=== PATIENT | male | born 1945 | race Caucasian/White ===

== ENCOUNTER 2016-11-19 07:23 | Day surgery (SDC) | payer OTHER ==
[2016-11-18 13:45] VITALS: BMI 24.2
[2016-11-19] MEDS ORDERED: ACETAMINOPHEN 325 MG TABLET (FP) ONE (08:11)
[2016-11-19 08:22] VITALS: TEMP 98
[2016-11-19] MEDS ORDERED: LIDOCAINE HCL/PF 1% SDV 5ML VIAL ONE (08:46)
[2016-11-19] MEDS ORDERED: PROPOFOL 20 ML ONE ×3 (08:46)
[2016-11-19 12:02] VITALS: BP 120/69; PULSE 63
--- NOTE | 2016-11-20 12:53 | PATH ---
Surgical Pathology Report Patient Name: NARINDER SOLIS [facility]. Rec. #: [id number] /Age/Gender: 1945 (Age: 71) / M Account: [id number] Location: U-ENDOSCOPY Taken: 11/19/2016 Received: 11/19/2016 Reported: 11/20/2016 Physicians: Paddy Negrete D.O. Specimen(s) Received A: BX DESCENDING COLON POLYP B: BX CECAL POLYP C: BX HEPATIC FLEXURE POLYP Clinical History Colon screening Diverticulosis, hemorrhoids, colon polyps (descending colon, cecum, hepatic flexure) Final Diagnosis A. COLON, DESCENDING, POLYP BIOPSY: POLYPOID FRAGMENT OF COLONIC MUCOSA WITH PROMINENT REACTIVE LYMPHOID AGGREGATE AND FOCAL SURFACE HYPERPLASTIC CHANGE. B. COLON, CECUM, POLYP, BIOPSY: POLYPOID FRAGMENT OF COLONIC MUCOSA WITH PROMINENT REACTIVE LYMPHOID AGGREGATE. C. COLON, HEPATIC FLEXURE, POLYP BIOPSY: FRAGMENTS OF TUBULAR ADENOMA. Electronically Signed David Bell M.D. Gross Description A. Received in formalin, labeled "biopsy descending colon polyp" is a arvizu, irregular portion of soft tissue measuring 0.3 cm in greatest dimension. The specimen is submitted in toto in one cassette. B. Received in formalin, labeled "biopsy cecal polyp" is a arvizu, irregular portion of soft tissue measuring 0.3 cm in greatest dimension. The specimen is submitted in toto in one cassette. C. Received in formalin, labeled "biopsy hepatic flexure polyp" are 2 arvizu, irregular portions of soft tissue averaging 0.2 cm in greatest dimension. The specimens are submitted in toto in one cassette. 11/19/201611/19/2016
== END 2016-11-19 10:30 | disposition home or self-care (01) ==
LOC: JASU-ENDO 07:23
PROVIDERS: ATTEND Internal Medicine Gastroenterology
PROC: 0DBE8ZX Excision of Large Intestine, Via Natural or Artificial Opening Endoscopic, Diagnostic (ICD-10-PCS; 2016-11-19)
PROC: 0DBM8ZX Excision of Descending Colon, Via Natural or Artificial Opening Endoscopic, Diagnostic (ICD-10-PCS; 2016-11-19)
PROC: 0DBH8ZX Excision of Cecum, Via Natural or Artificial Opening Endoscopic, Diagnostic (ICD-10-PCS; principal; 2016-11-19 09:00)
DX: Z12.11 Encounter for screening for malignant neoplasm of colon (principal); K57.30 Diverticulosis of large intestine without perforation or abscess without bleeding; K64.8 Other hemorrhoids; D12.0 Benign neoplasm of cecum; D12.4 Benign neoplasm of descending colon; K63.5 Polyp of colon
CPT/HCPCS: 88305-TC

== ENCOUNTER 2017-03-29 13:06 | Observation (INO) | payer OTHER ==
[2017-03-29] MEDS ORDERED: SODIUM CHLORIDE 1,000 ML IV STA (13:42)
[2017-03-29] MEDS ORDERED: ASPIRIN 81 MG CHEWABLE TABLETS PO ONE (13:42)
[2017-03-29] MEDS ORDERED: ASPIRIN 81 MG CHEWABLE TABLETS ONE (13:59)
[2017-03-29 14:04] LABS: BASOPHIL 0.4 % (0-2.0); EOSINOPHIL 0.6 % (0-4.5); MCH 30.8 pg (25.7-33.7); MCHC 33.8 g/dl (32.0-35.9); MEAN CELL VOLUME 91.3 fl (80-96); MEAN PLT VOLUME 7.6 fl (7.5-11.1); NEUTROPHILS 85.8 % (42.8-82.8); PLATELET COUNT 158 K/MM3 (134-434); WHITE BLOOD COUNT 11.6 K/mm3 (4.0-10.0)
[2017-03-29 14:14] LABS: INR 1.03 (0.82-1.09); PROTHROMBIN TIME (PATIENT) 11.3 SEC (9.98-11.88)
[2017-03-29 14:16] LABS: ACTIVATED PTT 34.4 SECONDS (26.9-34.4)
[2017-03-29 14:31] LABS: ALBUMIN 3.7 g/dl (3.4-5.0); ANION GAP 8 (8-16); CALCIUM 8.7 mg/dL (8.5-10.1); CO2 27 mmol/L (21-32); CREATININE 0.8 mg/dL (0.7-1.3); GLUCOSE,RANDOM 98 mg/dL (74-106); SGOT/AST 28 U/L (15-37); SGPT/ALT 34 U/L (12-78)
[2017-03-29 14:34] LABS: ALK PHOS 41 U/L (45-117); TROPONIN I < 0.02 ng/ml (0.00-0.05)
--- NOTE | 2017-03-29 15:01 | PDOC ---
History of Present Illness - History of Present Illness Initial Comments: 03/29/17 15:12 The patient is a 72-year-old male, with a significant past medical history of HTN, who presents to the ED with several months of chest discomfort. Patient states it is brought upon when he exerts himself and it is alleviated when he is at rest. Pt reports to the ED today with worsening chest discomfort accompanied by shortness of breath. He also reports feeling lightheaded. Pt has not had a stress test for some time now. The patient denies having any other symptoms. <Kelsea Knutson - Last Filed: 03/29/17 15:11> - General History Source: Patient Exam Limitations: No Limitations <Yimi Martinez - Last Filed: 03/29/17 15:28> - General Chief Complaint: Chest Pain Stated Complaint: CHEST PAIN Time Seen by Provider: 03/29/17 13:29 Past History <Kelsea Knutson - Last Filed: 03/29/17 15:11> - Past Medical History Anemia: No Asthma: No Cancer: Yes (PROSTATE SURGERY) Cardiac Disorders: No CVA: No COPD: No CHF: No Dementia: No Diabetes: No GI Disorders: Yes (GERD) Disorders: No HTN: Yes Hypercholesterolemia: No Liver Disease: No Seizures: No Thyroid Disease: No - Surgical History Abdominal Surgery: Yes (BILATERAL INGUINAL HERNIA REPAIR) Appendectomy: No Cardiac Surgery: No Cholecystectomy: No Lung Surgery: No Neurologic Surgery: No Orthopedic Surgery: No - Psycho/Social/Smoking Cessation Hx Suicidal Ideation: No Smoking History: Never smoked Have you smoked in the past 12 months: No Information on smoking cessation initiated: No Hx Alcohol Use: No Drug/Substance Use Hx: No Substance Use Type: None Hx Substance Use Treatment: No <Yimi Martinez - Last Filed: 03/29/17 15:28> - Past Medical History Allergies/Adverse Reactions: Allergies Allergy/AdvReac Type Severity Reaction Status Date / Time No Known Allergies Allergy Verified 03/29/17 13:09 Home Medications: Ambulatory Orders Aspirin [ASA -] 81 mg PO DAILY 11/18/16 Cholecalciferol (Vitamin D3) [Vitamin D3 -] 1,000 unit PO DAILY 11/18/16 Hydrochlorothiazide [Hctz -] 12.5 mg PO DAILY 11/18/16 Lisinopril [Prinivil] 20 mg PO DAILY 11/18/16 Potassium Chloride [K-Dur -] 10 meq PO DAILY 11/18/16 Ranitidine [Zantac -] 150 mg PO BID 11/18/16 Review of Systems - Review of Systems Able to Perform ROS?: Yes Comments:: 03/29/17 15:12 GENERAL/CONSTITUTIONAL: No fever or chills. No weakness. HEAD, EYES, EARS, NOSE AND THROAT: No change in vision. No ear pain or discharge. No sore throat. CARDIOVASCULAR: +chest pain or shortness of breath, lightheadedness RESPIRATORY: No cough, wheezing, or hemoptysis. SKIN: No rash GASTROINTESTINAL: No nausea, vomiting, diarrhea or constipation. GENITOURINARY: No dysuria, frequency, or change in urination. MUSCULOSKELETAL: No joint or muscle swelling or pain. No neck or back pain. NEUROLOGIC: No headache, vertigo, loss of consciousness, or change in strength/ sensation. ENDOCRINE: No increased thirst. No abnormal weight change. HEMATOLOGIC/LYMPHATIC: No anemia, easy bleeding, or history of blood clots. ALLERGIC/IMMUNOLOGIC: No hives or skin allergy. <Kelsea Knutson - Last Filed: 03/29/17 15:11> *Physical Exam - Vital Signs Last Vital Signs Temp Pulse Resp BP Pulse Ox 97.5 F L 51 L 18 170/90 100 03/29/17 13:09 03/29/17 13:09 03/29/17 13:09 03/29/17 13:09 03/29/17 13:09 - Physical Exam Comments: 03/29/17 15:13 GENERAL: Awake, alert, and fully oriented, in no acute distress HEAD: No signs of trauma ENT: Auricles normal inspection, hearing grossly normal, nares patent, oropharynx clear EYES: PERRLA, EOMI, sclera anicteric, conjunctiva clear without exudates. Moist mucosa. NECK: Normal ROM, supple, no lymphadenopathy, JVD, or masses LUNGS: Breath sounds equal, clear to auscultation bilaterally. No wheezes, and no crackles HEART: Regular rate and rhythm, normal S1 and S2, no murmurs, rubs or gallops ABDOMEN: Soft, nontender, normoactive bowel sounds. No guarding, no rebound. No masses EXTREMITIES: Normal range of motion, no edema. No clubbing or cyanosis. No cords, erythema, or tenderness NEUROLOGICAL: Cranial nerves II through XII grossly intact. Normal speech, normal gait SKIN: Warm, Dry, normal turgor, no rashes or lesions noted <Kelsea Knutson - Last Filed: 03/29/17 15:11> - Vital Signs Last Vital Signs Temp Pulse Resp BP Pulse Ox 97.5 F L 51 L 18 170/90 100 03/29/17 13:09 03/29/17 13:09 03/29/17 13:09 03/29/17 13:09 03/29/17 13:09 <Yimi Martinez - Last Filed: 03/29/17 15:28> Heart Score/ECG Review - History History: Highly suspicious - Electrocardiogram EKG: Normal - Age Age: >/= 65 - Risk Factors Risk Factors Heart Score: Yes Hx Hypertension Based on the list above the patient has:: 1-2 risk factors - Troponin Troponin: </= normal limit - Score Heart Score - Total: 5 #1 ECG reviewed & interpreted by me at: 13:20 03/29/17 15:06 NSR 54, left axis deviation, no std/jt, TWI aVL, QTC 402 msec <Yimi Martinez - Last Filed: 03/29/17 15:28> ED Treatment Course - LABORATORY CBC & Chemistry Diagram: 03/29/17 13:55 03/29/17 13:55 - ADDITIONAL ORDERS Additional order review: Laboratory Results 03/29/17 03/29/17 13:55 13:55 INR 1.03 PTT (Actin FS) 34.4 Sodium 136 Potassium 3.9 Chloride 101 Carbon Dioxide 27 Anion Gap 8 BUN 16 Creatinine 0.8 Creat Clearance w eGFR > 60 Random Glucose 98 Calcium 8.7 Magnesium 2.0 Total Bilirubin 1.0 AST 28 ALT 34 Alkaline Phosphatase 41 L Creatine Kinase 109 Troponin I < 0.02 Total Protein 7.0 Albumin 3.7 03/29/17 13:55 RBC 4.57 MCV 91.3 MCHC 33.8 RDW 14.0 MPV 7.6 Neutrophils % 85.8 H Lymphocytes % 7.2 L Monocytes % 6.0 Eosinophils % 0.6 Basophils % 0.4 - Medications Given in the ED: ED Medications Discontinued Medications Generic Name Dose Route Start Last Admin Trade Name Freq PRN Reason Stop Dose Admin Aspirin 243 mg 03/29/17 13:42 03/29/17 13:58 Asa - PO 03/29/17 13:43 243 mg ONCE ONE Administration Sodium Chloride 1,000 mls @ 1,000 mls/hr 03/29/17 13:42 03/29/17 13:58 Normal Saline - IV 03/29/17 14:41 1,000 mls/hr ASDIR STA Administration <Kelsea Knutson - Last Filed: 03/29/17 15:11> - LABORATORY CBC & Chemistry Diagram: 03/29/17 13:55 03/29/17 13:55 - ADDITIONAL ORDERS Additional order review: Laboratory Results 03/29/17 03/29/17 13:55 13:55 INR 1.03 PTT (Actin FS) 34.4 Sodium 136 Potassium 3.9 Chloride 101 Carbon Dioxide 27 Anion Gap 8 BUN 16 Creatinine 0.8 Creat Clearance w eGFR > 60 Random Glucose 98 Calcium 8.7 Magnesium 2.0 Total Bilirubin 1.0 AST 28 ALT 34 Alkaline Phosphatase 41 L Creatine Kinase 109 Troponin I < 0.02 Total Protein 7.0 Albumin 3.7 03/29/17 13:55 RBC 4.57 MCV 91.3 MCHC 33.8 RDW 14.0 MPV 7.6 Neutrophils % 85.8 H Lymphocytes % 7.2 L Monocytes % 6.0 Eosinophils % 0.6 Basophils % 0.4 - RADIOLOGY Radiology Studies Ordered: Category Date Time Status CHEST X-RAY PORTABLE* [RAD] Stat Radiology 03/29/17 13:42 Completed - Medications Given in the ED: ED Medications Discontinued Medications Generic Name Dose Route Start Last Admin Trade Name Freq PRN Reason Stop Dose Admin Aspirin 243 mg 03/29/17 13:42 03/29/17 13:58 Asa - PO 03/29/17 13:43 243 mg ONCE ONE Administration Sodium Chloride 1,000 mls @ 1,000 mls/hr 03/29/17 13:42 03/29/17 13:58 Normal Saline - IV 03/29/17 14:41 1,000 mls/hr ASDIR STA Administration <Yimi Martinez - Last Filed: 03/29/17 15:28> Medical Decision Making - Medical Decision Making 03/29/17 15:04 A portion of this note was documented by scribe services under my direction. I have reviewed the details of the note, within reason, and agree with the documentation with the following case summary and management plan written by me. Patient treated in the ED. Nursing notes are reviewed and incorporated into the medical decision-making. Vital signs reviewed. Peripheral IV access obtained by the nurse, laboratory studies are drawn and sent, reviewed and interpreted by myself. Vital Signs Temp Pulse Resp BP Pulse Ox 97.5 F L 51 L 18 170/90 100 03/29/17 13:09 03/29/17 13:09 03/29/17 13:09 03/29/17 13:09 03/29/17 13:09 72-year-old male with past medical history of hypertension presents with chest discomfort for several months worsening today. Patient reported exertional component where he would have chest discomfort relieved at rest. However, today , patient noted that the chest discomfort worsened and now he because more short of breath. Patient had became lightheaded. Stated the worsening component admit the patient come to the ED. Has not had a stress test in a while. We'll need to rule out myocardial infarction. Troponins, chest x-ray, labs. I suspect the patient would benefit from provocative testing such as a stress test. Aspirin. Patient took baby aspirin this morning, will complete aspirin. Admit 03/29/17 15:27 Chest xray reviewed. CBC, BMP 03/29/17 13:55 03/29/17 13:55 CMP Sodium 136 mmol/L (136-145) 03/29/17 13:55 Potassium 3.9 mmol/L (3.5-5.1) 03/29/17 13:55 Chloride 101 mmol/L (98-107) 03/29/17 13:55 Carbon Dioxide 27 mmol/L (21-32) 03/29/17 13:55 Anion Gap 8 (8-16) 03/29/17 13:55 BUN 16 mg/dL (7-18) 03/29/17 13:55 Creatinine 0.8 mg/dL (0.7-1.3) 03/29/17 13:55 Creat Clearance w eGFR > 60 (>60) 03/29/17 13:55 Random Glucose 98 mg/dL (74-106) 03/29/17 13:55 Calcium 8.7 mg/dL (8.5-10.1) 03/29/17 13:55 Magnesium 2.0 mg/dL (1.8-2.4) 03/29/17 13:55 Total Bilirubin 1.0 mg/dL (0.2-1.0) 03/29/17 13:55 AST 28 U/L (15-37) 03/29/17 13:55 ALT 34 U/L (12-78) 03/29/17 13:55 Alkaline Phosphatase 41 U/L (45-117) L 03/29/17 13:55 Creatine Kinase 109 IU/L (39-308) 03/29/17 13:55 Troponin I < 0.02 ng/ml (0.00-0.05) 03/29/17 13:55 Total Protein 7.0 g/dl (6.4-8.2) 03/29/17 13:55 Albumin 3.7 g/dl (3.4-5.0) 03/29/17 13:55 Trop negative. Case discussed with Dr. Cho who accepts the patient to telemetry observation. Case discussed in detail with admitting physician including history, physical exam and ancillary studies. Admitting physician has assumed care for the patient, will follow all pending diagnostics and will complete the evaluation and treatment. <Yimi Martinez - Last Filed: 03/29/17 15:28> *DC/Admit/Observation/Transfer - Attestations Scribe Attestion: 03/29/17 15:13 Documentation prepared by Kelsea Knutson, acting as medical equipment sales for Yimi Martinez MD. <Kelsea Knutson - Last Filed: 03/29/17 15:11> - Discharge Dispostion Admit: Yes <Yimi Martinez - Last Filed: 03/29/17 15:28> Diagnosis at time of Disposition: Chest pain Qualifiers: Chest pain type: unspecified Qualified Code(s): R07.9 - Chest pain, unspecified - Discharge Dispostion Condition at time of disposition: Stable
[2017-03-29] MEDS ORDERED: ACETAMINOPHEN 325 MG TABLET (FP) PO PRN (15:49)
[2017-03-29] MEDS ORDERED: ONDANSETRON 4 MG/2 ML VIAL IVPB PRN (15:49)
--- NOTE | 2017-03-29 15:49 | HP ---
PCP: Eric Garcia CHIEF COMPLAINT: Chest discomfort HISTORY OF PRESENT ILLNESS: This is a 72-year-old man who comes to the ER today complaining of chest discomfort. He says that he has been noticing chest discomfort and lightheadedness while bicycling for the past few months. He says it is not pain or pressure and it does not radiate. He feels better if he rests and burps. Symptoms are not related to meals. For the past 2 weeks, he feels like it has been worsening. Today, while he was going up and down stairs, he developed the same symptoms of chest discomfort with dizziness. He also noted sweats. He became concerned and came to the ER. He denies fever, chills, palpitations, shortness of breath, nausea, vomiting. He reports having 2 stress tests, the most recent was approximately 15 years ago. PAST MEDICAL HISTORY: Hypertension, GERD PAST SURGICAL HISTORY: Prostatectomy, hernia repair Allergies No Known Allergies Allergy (Verified 03/29/17 13:09) Home Medications 3 Medication Instructions Recorded Aspirin [ASA -] 81 mg PO DAILY 11/18/16 Cholecalciferol (Vitamin D3) 1,000 unit PO DAILY 11/18/16 [Vitamin D3 -] Hydrochlorothiazide [Hctz -] 12.5 mg PO DAILY 11/18/16 Lisinopril [Prinivil] 20 mg PO DAILY 11/18/16 Potassium Chloride [K-Dur -] 10 meq PO DAILY 11/18/16 Ranitidine [Zantac -] 150 mg PO BID 11/18/16 Social History: Smoking: Never smoked Alcohol: Drinks 1 glass of wine per night Drugs: None Recent Travel: No Family History: Father - CHF, smoker, alcohol abuse REVIEW OF SYSTEMS CONSTITUTIONAL: Present: diaphoresis. Absent: fever, chills, generalized weakness, malaise, loss of appetite, weight change HEENT: Absent: rhinorrhea, nasal congestion, throat pain, throat swelling, difficulty swallowing, mouth swelling, ear pain, eye pain, visual changes CARDIOVASCULAR: Present: chest pain, lightheadedness. Absent: syncope, palpitations, peripheral edema RESPIRATORY: Absent: cough, shortness of breath, dyspnea with exertion, orthopnea, wheezing, stridor, hemoptysis GASTROINTESTINAL: Absent: abdominal pain, abdominal distension, nausea, vomiting , diarrhea, constipation, melena, hematochezia GENITOURINARY: Absent: dysuria, frequency, urgency, hesitancy, hematuria, flank pain MUSCULOSKELETAL: Absent: myalgia, arthralgia, joint swelling, back pain, neck pain SKIN: Absent: rash, itching, pallor HEMATOLOGIC/IMMUNOLOGIC: Absent: easy bleeding, easy bruising, lymphadenopathy, frequent infections ENDOCRINE: Absent: unexplained weight gain, unexplained weight loss, heat intolerance, cold intolerance NEUROLOGIC: Present: dizziness. Absent: headache, focal weakness, paresthesias , unsteady gait, seizure, mental status changes, bladder or bowel incontinence PSYCHIATRIC: Absent: anxiety, depression, suicidal or homicidal ideation, hallucinations. PHYSICAL EXAMINATION Vital Signs - 24 hr 03/29/17 13:09 Temperature 97.5 F L Pulse Rate 51 L Respiratory 18 Rate Blood Pressure 170/90 O2 Sat by Pulse 100 Oximetry (%) GENERAL: Awake, alert, and fully oriented, in no acute distress. HEAD: Normal with no signs of trauma. EYES: Pupils equal, round and reactive to light, extraocular movements intact, sclerae anicteric, conjunctivae clear. EARS, NOSE, THROAT: Ears normal, nares patent, oropharynx clear without exudates. Moist mucous membranes. NECK: Normal range of motion, supple without lymphadenopathy, JVD, or masses. LUNGS: Breath sounds equal, clear to auscultation bilaterally. No wheezes, and no crackles. No accessory muscle use. HEART: Normal S1 and S2, bradycardic, without murmur, rub or gallop. ABDOMEN: Soft, nontender, not distended, normoactive bowel sounds, no guarding, no rebound, no masses. No hepatomegaly or splenomegaly. MUSCULOSKELETAL: Normal range of motion at all joints. No bony deformities or tenderness. No CVA tenderness. UPPER EXTREMITIES: 2+ pulses, warm, well-perfused. No cyanosis. No clubbing. No peripheral edema. LOWER EXTREMITIES: 2+ pulses, warm, well-perfused. No calf tenderness. No peripheral edema. NEUROLOGICAL: Cranial nerves II-XII intact. Normal speech. Gait not observed. PSYCHIATRIC: Cooperative. Good eye contact. Appropriate mood and affect. SKIN: Warm, dry, normal turgor, no rashes or lesions noted, normal capillary refill. Laboratory Results - last 24 hr 03/29/17 03/29/17 03/29/17 13:55 13:55 13:55 WBC 11.6 H RBC 4.57 Hgb 14.1 Hct 41.7 MCV 91.3 MCHC 33.8 RDW 14.0 Plt Count 158 MPV 7.6 Neutrophils % 85.8 H Lymphocytes % 7.2 L Monocytes % 6.0 Eosinophils % 0.6 Basophils % 0.4 INR 1.03 PTT (Actin FS) 34.4 Sodium 136 Potassium 3.9 Chloride 101 Carbon Dioxide 27 Anion Gap 8 BUN 16 Creatinine 0.8 Creat Clearance w eGFR > 60 Random Glucose 98 Calcium 8.7 Magnesium 2.0 Total Bilirubin 1.0 AST 28 ALT 34 Alkaline Phosphatase 41 L Creatine Kinase 109 Troponin I < 0.02 Total Protein 7.0 Albumin 3.7 Chest x-ray: Scarring vs atelectasis at left lung base EKG: Sinus rhythm, rate 54, LAD, no ischemic changes ASSESSMENT/PLAN: This is a 72-year-old man with a history of HTN who presented to the ED today with exertional chest discomfort, dizziness and sweats, worsening over the last 2 weeks. WBC is 11.6, initial troponin is < 0.02 and EKG shows no ischemic changes. 1. Chest pain - HEART score is 5 - Observe on telemetry - Serial troponins, EKGs - Echocardiogram - Continue aspirin, Zantac - Will not start beta-sukhi secondary to bradycardia - Cardiology consult 2. Hypertension - Continue Lisinopril, HCTZ 3. GERD - Continue Zantac Visit type - Emergency Visit Emergency Visit: Yes ED Registration Date: 03/29/17 Care time: The patient presented to the Emergency Department on the above date and was hospitalized for further evaluation of their emergent condition. - New Patient This patient is new to me today: Yes Date on this admission: 03/29/17 - Critical Care Critical Care patient: No
--- NOTE | 2017-03-29 18:22 | CON.CARD ---
Cardiology Consult (text) - Consultation Consultation Note: CC: cp 72 yo with h/o HTN, GERD who p/w worsening exertional CP. Was exercising regularly on bike or ellipitical up until a few months ago when he injured his foot and began noticing chest discomfort For the past few months noticed exertional discomfort after bicycling uphill or after pushing himself on elliptical. Symptoms were brief and would resolve with belching. Over this time course began to experienc symptoms running up and down stairs as well or using radiator specialist. Increasing in frequency over the past two weeks. On the day of presentation had associated lightheaded with symptoms. Two prior episodes of presyncope over the past 2 weeks, described as brief lightheadedness. Has h/o GERD and exertional sx's similar to sx's GERD sx's he gets after eating. No recurrence of exertional CP while here, but did have some GERD/CP after eating. No orthopnea, pnd, le edema, palpitations, shortness of breath, bleeding, He denies fever, chills, sweats, nausea, vomiting, diarrhea, cough, congestion, rash, visual disturbance, h/a. PAST MEDICAL HISTORY: Hypertension, GERD PAST SURGICAL HISTORY: prostate CA s/p Prostatectomy, hernia repair Social History: Smoking: Never smoked Alcohol: Drinks 1 glass of wine per night Drugs: None Family History: Father - no h/o CAD ROS: per hpi Ambulatory Orders Aspirin [ASA -] 81 mg PO DAILY 11/18/16 Cholecalciferol (Vitamin D3) [Vitamin D3 -] 1,000 unit PO DAILY 11/18/16 Hydrochlorothiazide [Hctz -] 12.5 mg PO DAILY 11/18/16 Lisinopril [Prinivil] 20 mg PO DAILY 11/18/16 Potassium Chloride [K-Dur -] 10 meq PO DAILY 11/18/16 Ranitidine [Zantac -] 150 mg PO BID 11/18/16 Current Medications Acetaminophen (Tylenol -) 650 mg PO Q4H PRN PRN Reason: FEVER OR PAIN Aspirin (Asa -) [address] [facility] Last Admin: 03/30/17 09:23 Dose: 81 mg Cholecalciferol (Vitamin D3 -) 1,[address] [facility] Last Admin: 03/30/17 09:23 Dose: 1,000 unit Hydrochlorothiazide (Hctz -) 12.[address] [facility] Last Admin: 03/30/17 09:23 Dose: 12.5 mg Lisinopril (Prinivil) [address] [facility] Last Admin: 03/30/17 09:23 Dose: 20 mg Ondansetron HCl (Zofran Injection) 4 mg IVPB Q4H PRN PRN Reason: NAUSEA Potassium Chloride (K-Dur -) [address] [facility] Last Admin: 03/30/17 09:23 Dose: 10 meq Ranitidine HCl (Zantac -) [address] [facility] Last Admin: 03/30/17 09:23 Dose: 150 mg Vital Signs - 24 hr 03/29/17 03/29/17 03/29/17 19:25 20:02 22:00 Temperature 97.9 F 97.5 F L Pulse Rate 52 L Pulse Rate [ 60 Right] Respiratory 17 17 Rate Blood Pressure 129/78 Blood Pressure 131/72 [Right Arm] O2 Sat by Pulse 99 98 Oximetry (%) 03/30/17 03/30/17 03/30/17 00:35 01:51 03:00 Temperature 97.6 F Pulse Rate 52 L Pulse Rate [ Right] Respiratory 17 18 18 Rate Blood Pressure 115/64 Blood Pressure [Right Arm] O2 Sat by Pulse 98 98 Oximetry (%) 03/30/17 03/30/17 03/30/17 05:00 10:00 11:00 Temperature 97.8 F 98.2 F Pulse Rate 50 L 61 Pulse Rate [ Right] Respiratory 16 16 17 Rate Blood Pressure 123/77 126/72 Blood Pressure [Right Arm] O2 Sat by Pulse 98 Oximetry (%) 03/30/17 14:30 Temperature 97.9 F Pulse Rate 59 L Pulse Rate [ Right] Respiratory 18 Rate Blood Pressure 127/76 Blood Pressure [Right Arm] O2 Sat by Pulse Oximetry (%) Intake & Output 03/28/17 03/29/17 03/30/17 03/31/17 07:59 07:59 07:59 07:59 Intake Total 100 Output Total 1 Balance 99 Weight 153 lb 6.4 oz nad, calm jvd flat, neck supple ctab, nl effort rrr nl s1, s2 no mrg + bs soft nt nd ext without e/c/c no carotid bruits no jaundice, diaphoresis aaox3 CBC, BMP 03/30/17 06:25 03/30/17 06:25 Laboratory Tests 03/29/17 03/29/17 03/30/17 13:55 20:00 01:30 Magnesium 2.0 Total Bilirubin 1.0 AST 28 ALT 34 Alkaline Phosphatase 41 L Creatine Kinase 109 Troponin I < 0.02 < 0.02 < 0.02 Albumin 3.7 EKG: SB, LAD. no ischemic changes tele: SB, 40's while asleep. 72 yo with h/o HTN, GERD who p/w worsening exertional CP. Exertional CP - EKG without ischemic changes, CE's neg x 3. However, sx's clearly exertional and increasing in frequency. Would further evaluate with stress test and echo. - If stress test positive, would adjust anti-hypertensives to include anti- anginal. - Exercise stress to evaluate for chronotropic incompetence as contributor to symptoms. - con't ASA, start statin, telemetry monitoring. presyncope - orthostatic vitals, hold hctz. - sinus bradycardia --> Will check prior office HR's. Eval for chronotropic incompetence as mentioned. TSH. - ischemic eval as mentioned. HTN - well controlled on current regimen. stopping hctz as mentioned. If bp rises, would add low dose norvasc as anti-anginal. Avoid BB's in setting of bradycardia.
[2017-03-29] MEDS: RANITIDINE HCL 150 MG TABLET (FP) PO SCH (22:42)
[2017-03-29 23:03] VITALS: BMI 24.7
[2017-03-30 07:33] LABS: BASOPHIL 0.8 % (0-2.0); EOSINOPHIL 1.6 % (0-4.5); MCH 31.7 pg (25.7-33.7); MCHC 34.5 g/dl (32.0-35.9); MEAN CELL VOLUME 91.8 fl (80-96); MEAN PLT VOLUME 8.2 fl (7.5-11.1); NEUTROPHILS 63.4 % (42.8-82.8); PLATELET COUNT 149 K/MM3 (134-434); RDW 14.1 % (11.9-15.9); WHITE BLOOD COUNT 4.5 K/mm3 (4.0-10.0)
[2017-03-30 08:17] LABS: ANION GAP 9 (8-16); CALCIUM 8.4 mg/dL (8.5-10.1); CO2 26 mmol/L (21-32); CREATININE 0.8 mg/dL (0.7-1.3); GLUCOSE,RANDOM 94 mg/dL (74-106)
[2017-03-30] MEDS: RANITIDINE HCL 150 MG TABLET (FP) PO SCH ×2 (09:23→21:42)
[2017-03-30] MEDS: LISINOPRIL 20 MG TABLET (FP) PO SCH (09:23)
[2017-03-30] MEDS: ASPIRIN 81 MG CHEWABLE TABLETS PO SCH (09:23)
[2017-03-30] MEDS: POTASSIUM CHLORIDE TABS 10 MEQ TABLET.ER (FP) PO SCH (09:23)
[2017-03-30] MEDS: CHOLECALCIFEROL (VITAMIN D3) 1,000 UNIT TABLET (FP) PO SCH (09:23)
[2017-03-30] MEDS ORDERED: HYDROCHLOROTHIAZIDE 12.5 MG CAPSULE (FP) PO SCH (10:00)
--- NOTE | 2017-03-30 10:58 | PN ---
Physical Exam: Hospitalist covering Dr. Faye SUBJECTIVE: Patient seen and examined. No chest pain or shortness of breath. Ambulating without difficulty. OBJECTIVE: TNI neg x 3. No events on telemetry. Vital Signs Period Temp Pulse Resp BP Sys/Bradford Pulse Ox Last 24 Hr 97.5 F-97.9 F 50-60 16-18 115-131/64-78 98-99 GENERAL: The patient is awake, alert, and fully oriented, in no acute distress. HEAD: Normal with no signs of trauma. EYES: PERRL, extraocular movements intact, sclera anicteric, conjunctiva clear. No ptosis. ENT: Ears normal, nares patent, oropharynx clear without exudates, moist mucous membranes. NECK: Trachea midline, full range of motion, supple. LUNGS: Breath sounds equal, clear to auscultation bilaterally, no wheezes, no crackles, no accessory muscle use. HEART: Regular rate and rhythm, S1, S2 without murmur, rub or gallop. ABDOMEN: Soft, nontender, nondistended, normoactive bowel sounds, no guarding, no rebound, no hepatosplenomegaly, no masses. EXTREMITIES: 2+ pulses, warm, well-perfused, no edema. NEUROLOGICAL: Cranial nerves II through XII grossly intact. Normal speech, gait not observed. PSYCH: Normal mood, normal affect. SKIN: Warm, dry, normal turgor, no rashes or lesions noted Laboratory Results - last 24 hr 03/29/17 03/30/17 03/30/17 20:00 01:30 06:25 WBC 4.5 D RBC 4.47 Hgb 14.2 Hct 41.1 MCV 91.8 MCHC 34.5 RDW 14.1 Plt Count 149 MPV 8.2 Neutrophils % 63.4 D Lymphocytes % 18.7 D Monocytes % 15.5 H D Eosinophils % 1.6 D Basophils % 0.8 Sodium Potassium Chloride Carbon Dioxide Anion Gap BUN Creatinine Random Glucose Calcium Troponin I < 0.02 < 0.02 03/30/17 06:25 WBC RBC Hgb Hct MCV MCHC RDW Plt Count MPV Neutrophils % Lymphocytes % Monocytes % Eosinophils % Basophils % Sodium 143 Potassium 3.7 Chloride 108 H Carbon Dioxide 26 Anion Gap 9 BUN 13 Creatinine 0.8 Random Glucose 94 Calcium 8.4 L Troponin I Active Medications Generic Name Dose Route Start Last Admin Trade Name Freq PRN Reason Stop Dose Admin Acetaminophen 650 mg 03/29/17 15:49 Tylenol - PO Q4H PRN FEVER OR PAIN Aspirin 81 mg 03/30/17 10:00 03/30/17 09:23 Asa - PO 81 mg DAILY TESS Administration Cholecalciferol 1,000 unit 03/30/17 10:00 03/30/17 09:23 Vitamin D3 - PO 1,000 unit DAILY TESS Administration Hydrochlorothiazide 12.5 mg 03/30/17 10:00 03/30/17 09:23 Hctz - PO 12.5 mg DAILY TESS Administration Lisinopril 20 mg 03/30/17 10:00 03/30/17 09:23 Prinivil PO 20 mg DAILY TESS Administration Ondansetron HCl 4 mg 03/29/17 15:49 Zofran Injection IVPB Q4H PRN NAUSEA Potassium Chloride 10 meq 03/30/17 10:00 03/30/17 09:23 K-Dur - PO 10 meq DAILY TESS Administration Ranitidine HCl 150 mg 03/29/17 22:00 03/30/17 09:23 Zantac - PO 150 mg BID TESS Administration ASSESSMENT/PLAN: 72-year-old man with a history of HTN admitted with exertional chest discomfort, dizziness and sweats, worsening over the last 2 weeks. 1. Chest pain -HEART score is 5 -Observe on telemetry -TNI neg x 3 -Echocardiogram and likely stress test tomorrow -Continue ASA -Not starting BB secondary to bradycardia -Cardiology following 2. Hypertension -BP at goal -Continue Lisinopril, HCTZ 3. GERD -Continue Zantac DISPO: Remains in observation. Visit type - Emergency Visit Emergency Visit: Yes ED Registration Date: 03/29/17 Care time: The patient presented to the Emergency Department on the above date and was hospitalized for further evaluation of their emergent condition. - New Patient This patient is new to me today: Yes Date on this admission: 03/30/17 - Critical Care Critical Care patient: No - Discharge Referral Referred to [facility] Med P.C.: No
--- NOTE | 2017-03-30 20:48 | EKG ---
Test Reason : Blood Pressure : / mmHG Vent. Rate : 054 BPM Atrial Rate : 054 BPM P-R Int : 162 ms QRS Dur : 092 ms QT Int : 424 ms P-R-T Axes : 040 -33 071 degrees QTc Int : 402 ms SINUS BRADYCARDIA LEFT AXIS DEVIATION ABNORMAL ECG NO PREVIOUS ECGS AVAILABLE Confirmed by HANNAH DANIELS, MARY ([id number]) on 03/30/2017 8:47:50 PM Referred By: Confirmed By:MARY YOUNG MD
--- NOTE | 2017-03-30 20:48 | EKG ---
Test Reason : Blood Pressure : / mmHG Vent. Rate : 053 BPM Atrial Rate : 053 BPM P-R Int : 152 ms QRS Dur : 104 ms QT Int : 432 ms P-R-T Axes : -02 -35 056 degrees QTc Int : 405 ms SINUS BRADYCARDIA LEFT AXIS DEVIATION ABNORMAL ECG WHEN COMPARED WITH ECG OF 29-MAR-2017 13:16, NO SIGNIFICANT CHANGE WAS FOUND Confirmed by MARY YOUNG MD ([id number]) on 03/30/2017 8:47:46 PM Referred By: PERFECTO MACIAS Confirmed By:MARY YOUNG MD
[2017-03-30] MEDS ORDERED: ATORVASTATIN CA 40 MG TABLET (FP) PO SCH (22:00)
[2017-03-31 08:15] LABS: BASOPHIL 0.8 % (0-2.0); EOSINOPHIL 1.3 % (0-4.5); MCH 31.2 pg (25.7-33.7); MCHC 34.1 g/dl (32.0-35.9); MEAN CELL VOLUME 91.5 fl (80-96); MEAN PLT VOLUME 8.2 fl (7.5-11.1); NEUTROPHILS 67.4 % (42.8-82.8); PLATELET COUNT 146 K/MM3 (134-434); RDW 14.2 % (11.9-15.9); WHITE BLOOD COUNT 4.8 K/mm3 (4.0-10.0)
[2017-03-31 08:51] LABS: CREATININE 0.9 mg/dL (0.7-1.3)
[2017-03-31 08:57] LABS: CHOLESTEROL 149 mg/dL (50-200)
[2017-03-31 08:58] LABS: LDL CHOLESTEROL (ONLY SJRH) 103 mg/dL (5-100)
[2017-03-31 09:11] LABS: ALBUMIN 3.6 g/dl (3.4-5.0); ALK PHOS 42 U/L (45-117); ANION GAP 7 (8-16); BILIRUBIN,TOTAL 1.6 mg/dL (0.2-1.0); CALCIUM 8.7 mg/dL (8.5-10.1); CO2 29 mmol/L (21-32); GLUCOSE,RANDOM 94 mg/dL (74-106); SGOT/AST 21 U/L (15-37); SGPT/ALT 33 U/L (12-78); THYROID STIMULATING HORMONE 1.86 uIU/ml (0.358-3.74); TOT PROT 6.9 g/dl (6.4-8.2)
[2017-03-31] MEDS: ASPIRIN 81 MG CHEWABLE TABLETS PO SCH ×2 (10:00→18:15)
[2017-03-31] MEDS: CHOLECALCIFEROL (VITAMIN D3) 1,000 UNIT TABLET (FP) PO SCH (10:00)
[2017-03-31] MEDS: LISINOPRIL 20 MG TABLET (FP) PO SCH ×2 (10:00→18:15)
[2017-03-31] MEDS: POTASSIUM CHLORIDE TABS 10 MEQ TABLET.ER (FP) PO SCH (10:00)
[2017-03-31] MEDS: RANITIDINE HCL 150 MG TABLET (FP) PO SCH (10:00)
--- NOTE | 2017-03-31 12:35 | PN ---
Progress Note, Physician Chief Complaint: Mr Rodriguez is without complaint. No cp, sob, n/v. Says he experiences chest discomfort with activity, but not pain. Has not occurred while here. - Current Medication List Current Medications: Active Medications Acetaminophen (Tylenol -) 650 mg PO Q4H PRN PRN Reason: FEVER OR PAIN Aspirin (Asa -) 81 mg PO DAILY [facility] Last Admin: 03/31/17 10:00 Dose: Not Given Atorvastatin Calcium (Lipitor -) 40 mg PO HS [facility] Last Admin: 03/30/17 21:42 Dose: 40 mg Cholecalciferol (Vitamin D3 -) 1,000 unit PO DAILY [facility] Last Admin: 03/31/17 10:00 Dose: Not Given Lisinopril (Prinivil) 20 mg PO DAILY [facility] Last Admin: 03/31/17 10:00 Dose: Not Given Ondansetron HCl (Zofran Injection) 4 mg IVPB Q4H PRN PRN Reason: NAUSEA Potassium Chloride (K-Dur -) 10 meq PO DAILY [facility] Last Admin: 03/31/17 10:00 Dose: Not Given Ranitidine HCl (Zantac -) 150 mg PO BID [facility] Last Admin: 03/31/17 10:00 Dose: Not Given - Objective Vital Signs: Vital Signs Temperature 97.8 F 03/31/17 05:15 Pulse Rate 56 L 03/31/17 05:15 Respiratory Rate 16 03/31/17 05:15 Blood Pressure 136/76 03/31/17 05:15 O2 Sat by Pulse Oximetry (%) 98 03/31/17 05:10 Constitutional: Yes: Well Nourished, No Distress, Calm Cardiovascular: Yes: Regular Rate and Rhythm. No: Gallop, Murmur, Rub Respiratory: Yes: Regular, CTA Bilaterally. No: Rales, Rhonchi, Wheezes Gastrointestinal: Yes: Normal Bowel Sounds, Soft. No: Distention, Tenderness Extremities: Yes: WNL Edema: No Labs: CBC, BMP 03/31/17 06:00 03/31/17 06:00 INR, PTT INR 1.03 (0.82-1.09) 03/29/17 13:55 Problem List - Problems (1) Chest pain Assessment/Plan: -appreciate cardiology assistance -continue aspirin -undergoing stress test today -if normal, can discharge home -if abnormal, transfer to [facility] Code(s): R07.9 - CHEST PAIN, UNSPECIFIED Qualifiers: Chest pain type: unspecified Qualified Code(s): R07.9 - Chest pain, unspecified (2) HTN (hypertension) Assessment/Plan: -controlled -continue lisinopril Code(s): I10 - ESSENTIAL (PRIMARY) HYPERTENSION (3) GERD (gastroesophageal reflux disease) Assessment/Plan: -continue zantac -quiescent Code(s): K21.9 - GASTRO-ESOPHAGEAL REFLUX DISEASE WITHOUT ESOPHAGITIS Qualifiers: Esophagitis presence: without esophagitis Qualified Code(s): K21.9 - Gastro-esophageal reflux disease without esophagitis
[2017-03-31 15:36] VITALS: BP 125/83; PULSE 61; TEMP 98.4
--- NOTE | 2017-03-31 16:47 | DS ---
Physical Examination Vital Signs: Vital Signs Temperature 98.4 F 03/31/17 13:00 Pulse Rate 61 03/31/17 13:00 Respiratory Rate 18 03/31/17 13:00 Blood Pressure 125/83 03/31/17 13:00 O2 Sat by Pulse Oximetry (%) 99 03/31/17 13:00 Labs: CBC, BMP 03/31/17 06:00 03/31/17 06:00 Discharge Summary Reason For Visit: CHEST PAIN Current Active Problems Chest pain (Acute) GERD (gastroesophageal reflux disease) (Acute) HTN (hypertension) (Acute) Hospital Course: (1) Chest pain Code(s): R07.9 - CHEST PAIN, UNSPECIFIED Qualifiers: Chest pain type: unspecified Qualified Code(s): R07.9 - Chest pain, unspecified (2) HTN (hypertension) Code(s): I10 - ESSENTIAL (PRIMARY) HYPERTENSION (3) GERD (gastroesophageal reflux disease) Code(s): K21.9 - GASTRO-ESOPHAGEAL REFLUX DISEASE WITHOUT ESOPHAGITIS Qualifiers: Mr Rodriguez is a pleasant 72 year old male who comes in with chest discomfort with exertion. He was admitted to the hospital. He was seen by cardiology. Cardiac enzymes x3 were sent and negative. EKG was benign. Stress test performed and it was normal. He is safe for discharge home. Condition: Good - Instructions Diet, Activity, Other Instructions: resume previous diet and activity. Referrals: Cecily Torres MD [Staff Physician] - Abad Garcia MD [Primary Care Provider] - Disposition: HOME - Home Medications Comprehensive Discharge Medication List: Ambulatory Orders Aspirin [ASA -] 81 mg PO DAILY 11/18/16 Cholecalciferol (Vitamin D3) [Vitamin D3 -] 1,000 unit PO DAILY 11/18/16 Hydrochlorothiazide [Hctz -] 12.5 mg PO DAILY 11/18/16 Lisinopril [Prinivil] 20 mg PO DAILY 11/18/16 Potassium Chloride [K-Dur -] 10 meq PO DAILY 11/18/16 Ranitidine [Zantac -] 150 mg PO BID 11/18/16
== END 2017-03-31 18:45 | disposition home or self-care (01) ==
LOC: JER 13:06 → JERBED 15:37 → J4S 22:04
PROVIDERS: ADMIT Internal Medicine; ATTEND Internal Medicine
PROC: 3E033GC Introduction of Other Therapeutic Substance into Peripheral Vein, Percutaneous Approach (ICD-10-PCS; principal; 2017-03-29)
PROC: 3E0337Z Introduction of Electrolytic and Water Balance Substance into Peripheral Vein, Percutaneous Approach (ICD-10-PCS; 2017-03-29)
DX: R07.9 Chest pain, unspecified (principal); I10 Essential (primary) hypertension; K21.9 Gastro-esophageal reflux disease without esophagitis; Z79.82 Long term (current) use of aspirin
CPT/HCPCS: 36415; 71010-TC; 78452-TC; 80048; 80053; 80061; 82550; 83721; 83735; 84443; 84484; 85025; 85610; 85730; 93005; 93010; 93017; 93306-TC; 99284-25; A9502; G0378

== ENCOUNTER 2021-01-18 04:41 | Day surgery (SDC) | payer OTHER ==
[2021-01-15 14:31] VITALS: BMI 24.0
[2021-01-18 07:41] VITALS: TEMP 97.5
[2021-01-18 10:24] VITALS: BP 119/70; PULSE 61
== END 2021-01-18 10:50 | disposition home or self-care (01) ==
LOC: JASU-ENDO 04:41
PROVIDERS: ATTEND Internal Medicine Gastroenterology
PROC: 0DBL8ZX Excision of Transverse Colon, Via Natural or Artificial Opening Endoscopic, Diagnostic (ICD-10-PCS; 2021-01-18)
PROC: 0DBP8ZX Excision of Rectum, Via Natural or Artificial Opening Endoscopic, Diagnostic (ICD-10-PCS; 2021-01-18)
PROC: 0DBC8ZX Excision of Ileocecal Valve, Via Natural or Artificial Opening Endoscopic, Diagnostic (ICD-10-PCS; 2021-01-18)
PROC: 0DBH8ZX Excision of Cecum, Via Natural or Artificial Opening Endoscopic, Diagnostic (ICD-10-PCS; principal; 2021-01-18 09:00)
DX: Z12.11 Encounter for screening for malignant neoplasm of colon (principal); Z86.010 Personal history of colon polyps; K63.5 Polyp of colon; K62.1 Rectal polyp; K57.30 Diverticulosis of large intestine without perforation or abscess without bleeding; K64.8 Other hemorrhoids
CPT/HCPCS: 88305-TC

== ENCOUNTER 2021-01-25 04:42 | Day surgery (SDC) | payer OTHER ==
[2021-01-23 10:06] VITALS: BMI 23.7
[2021-01-25 10:22] VITALS: TEMP 97.8
[2021-01-25 10:31] VITALS: PULSE 60
[2021-01-25 13:20] VITALS: BP 144/81
== END 2021-01-25 11:25 | disposition home or self-care (01) ==
LOC: JASU-ENDO 04:42
PROVIDERS: ATTEND Internal Medicine Gastroenterology
PROC: 0DJ08ZZ Inspection of Upper Intestinal Tract, Via Natural or Artificial Opening Endoscopic (ICD-10-PCS; principal; 2021-01-25 10:00)
DX: D64.9 Anemia, unspecified (principal)